=== PATIENT | female | born 1965 | race Hispanic/Latino ===

== ENCOUNTER → 2017-10-14 | Outpatient (CLI) | payer BC ==
[~2017-10-14] MED LIST: CETIRIZINE HCL10 MG; DICLOFENAC SODI50 MG; FOLIC ACID1 MG PO; VITAMIN B-1250 MCG; VITAMIN D400 UNIT PO; [UNRECOGNIZED DRUG - OTHER]
--- NOTE | 2017-10-15 08:24 | Diagnostic Imaging Report ---
#[id number] - BRSPECRT SPECIMEN: 10/14/2017 Correlation is made to exams dated: 10/14/2017 localization - [facility] and 08/13/2017 stereotactic biopsy - [facility]. Specimen contains the hook wire and the marker clip is in the center of the specimen. IMPRESSION: SPECIMEN Follow-up with ACR/ACS guidelines. Tung Burton Jr., D.O. cw/:10/14/2017 11:41:02 Clinical Education Assistant: Bere DEMPSEY(R)(M), [facility]
== END ==
LOC: MAMMO 08:33
PROVIDERS: ATTEND Surgery
DX: N63.10 Unspecified lump in the right breast, unspecified quadrant (principal)

== ENCOUNTER → 2017-11-19 | Outpatient (CLI) | payer BC ==
[~2017-11-19] MED LIST changes: +LIDOCAINE 1% 5ML-MPF INJ ONE
--- NOTE | 2017-11-19 12:58 | Diagnostic Imaging Report ---
Exam: Ultrasound guided right axillary lymph node FNA dated 11/19/2017. History: Patient with recent lumpectomy following stereotactic biopsy of microcalcifications revealing for microinvasive breast cancer. Comparison: None available Findings: Preliminary ultrasound of both the right and left axilla shows a dominant lymph node in the right axilla measuring 2.7 x 0.7 cm in size. This lymph node has normal morphology. Ultrasound comparison of the contralateral left axilla reveals a 2.4 x 0.6 cm lymph node with normal morphology. Following informed consent sterile preparation of the right axilla was accomplished. Utilizing ultrasound guidance under 1% local anesthesia an FNA was performed of the dominant lymph node in the right axilla. A total of 5 passes were performed utilizing 25-gauge needles. Specimens were conveyed to the pathologist in attendance who deemed the specimens adequate. Patient tolerated the procedure well. Impression: Successful ultrasound-guided fine-needle aspiration of a dominant lymph node with normal morphology in the right axilla. Signed by: Dr. Tung Burton DO on 11/19/2017 12:55 PM
== END ==
LOC: US 07:42
PROVIDERS: ATTEND Surgery
DX: N63.10 Unspecified lump in the right breast, unspecified quadrant (principal)
CPT/HCPCS: 10022; 38510; 76942; 88112; 88172; 88173; 88305